=== PATIENT | male | born 1965 | race African-American/Black ===

== ENCOUNTER 2023-08-05 22:19 | Emergency (ER) | payer BC, SELFPAY ==
[2023-08-05 22:20] VITALS: BP 151/101
--- NOTE | 2023-08-05 22:59 | ED.GENMED ---
History of Present Illness
General
Chief Complaint: Dizziness
Source: patient and spouse
Time Seen by Provider: 08/05/23 22:44
Travel History
Have you had any contact with someone who has COVID-19?: No
Do you have any symptoms of coronavirus? Fever > 100 degrees, chills, cough, shortness of breath, sore throat, loss of taste or smell, muscle aches, or headache?: No
History of Present Illness
History of Present Illness:
This patient is a 58-year-old male whose had a recent history of tinnitus over the past month or so. 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
He was referred to an ENT doctor in the city and that appointment is pending. Tonight, at around 9:15 PM while at his desk, he started to feel dizzy described as feeling 'like I might lose my balance'. He denies a sense of lightheadedness or near
syncope. He got up and walked over to the couch and alerted his that he needed 911. He felt very off balance when he was walking. He denies associated symptoms such as numbness, tingling, diplopia, change in speech, chest pain, dyspnea,
focal weakness, neck pain, headache, back pain, recent trauma or falls. He denies trouble swallowing, recent URI. He feels mostly nauseous now, but then becomes very dizzy when he turns his head to one side.
Past History
Past History
ED Past Medical History: Other (Hypertrophic cardiomyopathy)
ED Past Surgical History: Orthopedic
Social History
Tobacco: Non-smoker
Alcohol: Occasional
Drug: Marijuana
Personal:
Living: with family
Employment: Employed
Phy Exam
Physical Exam
Physical Exam:
GENERAL: Alert , in no apparent distress but obviously very nauseous
EYE: pupils equal and reactive, EOMI, no photophobia. There is a fatigable right-sided lateral nystagmus noted, no rotational or vertical nystagmus noted
NECK: Supple, no significant adenopathy.
ENT: o/p clr, mmm.
CARDIAC: Regular rate and rhythm .
LUNGS: Clear breath sounds bilaterally, no acute respiratory distress, no wheezes/rales/rhonchi
ABDOMEN: Soft, without focal tenderness, no r/g, no cvat
NEUROLOGICAL: Alert and oriented, no focal neuro deficits, [id number] normal, motor 5 out of 5, sensory intact, cranial nerves II through XII intact
SKIN: Warm and dry, skin intact.
MUSCULOSKELETAL: No edema, well perfused.
PSYCH: Normal and appropriate interaction.
Course
Orders/Labs/Results
Orders:
Orders
08/05/23 22:24
EKG [Electrocardiogram (*1)] Urgent
Reason for Study: Vertigo / Dizzy
EKG- Treatment ONCE
08/05/23 22:50
Complete Blood Count/With Diff Urgent
Comprehensive Metabolic Panel Urgent
Magnesium Urgent
Troponin I Urgent
08/05/23 22:58
diazePAM [Valium Injection] 5 mg IV NOW STA
08/05/23 22:59
CT Head W/o Iv Contrast Urgent
Comment:
Reason For Exam: dizzy
08/06/23 01:26
Metoclopramide [Reglan] 10 mg IV NOW STA
Abnormal Lab Results
08/05/23
22:50
MPV 11.0 H fL
(7.4-10.4)
Absolute Lymphs (auto) 5.4 H 10^3/uL
(1.2-3.4)
Neutrophils % 29.2 L %
(42.2-75.2)
Lymphocytes % 62.5 H %
(20.5-51.1)
Glucose 195 H mg/dl
(70-99)
08/05/23 22:50
08/05/23 22:50
Vital Signs
Initial and Last Documented VS:
Initial Vital Signs
Pulse Resp BP Pulse Ox
75 20 151/101 98
08/05/23 22:20 08/05/23 22:20 08/05/23 22:20 08/05/23 22:20
Last Documented Vital Signs
Pulse Resp BP Pulse Ox
71 23 192/88 96
08/06/23 01:15 08/06/23 01:15 08/06/23 01:01 08/06/23 01:15
*Critical Care Note
Total Time (30-74mins, 75-104mins- exclusive of procedures): Not Applicable
Update Note
Update Note:
Patient presents to the Emergency Department with ____dizziness nausea and vomiting
Number and Complexity of Problems Addressed at the Encounter
� Chronic conditions affecting care:
� Acute Exacerbation and/or Progression of Chronic Illness:
� Differential Diagnosis includes: But not limited to central vertigo such as stroke, bleed, tumor, peripheral vertigo such as M�ni�re's, vestibulitis, etc.
Amount and/or Complexity of Data to be Reviewed and Analyzed
� I performed an independent evaluation of and my interpretation is:
EKG:read by me as expected with hx of HCOM, lvh with T wave inv
CT: Read by vision, unremarkable
Xrays:
Laboratory Studies:generally unremarkable
Other:
� Review of other/old records reveals:
� Clinical information was obtained by an independent historian: who is at bedside
� Prescriptions/Medications Considered but not given:
� Further testing considered but not performed:
Risk of Complications and/or Morbidity or Mortality of Patient Management
� Social determinants of health affecting care:
� Discussion with other providers (PCP, Hospitalists, Consultants, etc):
� Escalation of care including admission/observation vs risk of discharge considered:1222 am Pt resting comfortably, eyes closed, supine...states he feels much better.
I reassessed patient at least 3 times during his stay here, most recently now to 243 AM. He has increasingly improved and now feels well. No recent vomiting. He ambulated here down the [place]ard without difficulty. He denies any symptoms at this
time. I strongly suspect a peripheral etiology for his symptoms particularly given his history of tendinitis and questionable abnormality of the semicircular canals as noted on CT for which she has a ENT follow-up appointment. Patient does not
have any 'red flag' findings on history or physical exam to suggest central etiology. Did discuss with patient and spouse, Jeffrey, importance of follow-up and reasons to return to the ER.
ED Attending Note
-
Portions of this chart may have been created with voice recognition software.� Occasional wrong word or��sound alike� substitutions may have occurred due to the inherent limitations of voice recognition software.
Discharge Plan
Departure
Patient Disposition: Home (Routine Discharge)
Date of Disposition: 08/06/23
Time of Disposition: 02:41
Patient with high blood pressure during this ER visit?: Yes
Condition: Good
Discharge Problem:
Vertigo
Instructions: Vertigo (a Type of Dizziness) (DC), BLOOD PRESSURE
Prescriptions:
New
metoclopramide HCl [Reglan] 10 mg tablet
10 mg PO Q8HPRN PRN (Reason: DIZZINESS) Qty: 9 0RF
Referrals:
NONE,* [Family Provider] -
Activity Restrictions/Additional Instructions:
PLEASE SEE YOUR ENT DOCTOR ON TUESDAY. IF YOU DEVELOP DIZZINESS THAT DOES NOT GET BETTER WITH THIS PRESCRIBED MEDICATION, VOMITING, FEVER, DOUBLE VISION, NUMBNESS, WEAKNESS, TROUBLE WALKING, IMBALANCE, CHANGE IN SPEECH OR OTHER WORRISOME SIGNS, GO
TO THE ER IMMEDIATELY!
Interventions
Interventions:
*Risk Screen - Suicide Last Done: 08/05/23 22:20
*General Assessment Last Done: 08/05/23 22:20
*Neglect/Abuse Screening Last Done: 08/05/23 22:20
ED- Fall Risk Assessment Last Done: 08/05/23 22:52
ED- Neurological Assessment Last Done: 08/05/23 22:53
ED- Cardiac Assessment Last Done: 08/05/23 22:52
Discharge Date and Time
Print Language: MONEGASQUE
[2023-08-05] MEDS: VALIUM INJECTION 5 MG IV (23:02)
[2023-08-05 23:11] LABS: % Basophils 0.5 % (0-2); % Eosinophils 0.8 % (0-6); % Immature Granulocytes 0.2 % (0-0.5); % Lymphocytes 62.5 % (20.5-51.1); % Monocytes 6.8 % (1.7-9.3); % Neutrophils 29.2 % (42.2-75.2); Absolute Eosinophils 0.1 10^3/uL (0-0.7); Absolute Lymphocytes 5.4 10^3/uL (1.2-3.4); Absolute Monocytes 0.6 10^3/uL (0.1-0.6); Absolute Neutrophils 2.5 10^3/uL (1.4-6.5); Hematocrit 44.3 % (39.0-52.0); Hemoglobin 15.6 g/dL (13.0-18.0); Mean Corp Hgb Conc. 35.2 g/dL (33.0-37.0); Mean Corpuscular Hgb 30.6 pg (27.0-31.0); Nucleated Red Blood Cells % 0 % (-); Platelet Count 231 10^3/uL (130-400); Red Blood Cell Count 5.09 10^6/uL (4.70-6.10); Red Cell Dist. Width 12.6 % (11.5-14.5); White Blood Cell Count 8.6 10^3/uL (4.8-10.8)
[2023-08-05 23:27] LABS: ALT (SGPT) 33 U/L (0-50); AST (SGOT) 39 U/L (17-59); Albumin 4.8 g/dl (3.5-5.0); Alkaline Phosphatase 109 U/L (38-126); Blood Urea Nitrogen 15 mg/dl (9-20); Calcium 9.7 mg/dl (8.4-10.2); Carbon Dioxide 27 mmol/L (22-30); Chloride 105 mmol/L (98-107); Glucose 195 mg/dl (70-99); Potassium 3.5 mmol/L (3.5-5.1); Sodium 143 mmol/L (135-145); Total Bilirubin 0.9 mg/dl (0.2-1.3); Total Protein 7.6 g/dl (6.3-8.2); eGFR > 60.00
[2023-08-05 23:38] LABS: Troponin I < 0.012 ng/ml
[2023-08-05 23:45] VITALS: BP 161/86
[2023-08-06] VITALS: BP 160/73
[2023-08-06 01:01] VITALS: BP 192/88
[2023-08-06] MEDS: REGLAN 10 MG IV (01:30)
[2023-08-06 02:00] VITALS: BP 162/82
[2023-08-06 02:54] VITALS: BP 162/87
== END 2023-08-06 02:55 | disposition home or self-care (01) ==
LOC: EMR 22:19
PROVIDERS: Emergency Medicine; EMERGENCY PHYSICIAN Emergency Medicine
DX: R42 Dizziness and giddiness (principal); I42.2 Other hypertrophic cardiomyopathy
CPT/HCPCS: 99284; 96374; 96375; 70450; 80053; 83735; 84484; 85025; 93005